=== PATIENT | male | born 2000 | race African-American/Black ===

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

== ENCOUNTER 2023-09-15 07:27 | Emergency (ER) | payer MEDICAID, OTHER ==
[~2023-09-15] VITALS: Ht 182.9 cm; Wt 184.4 kg
[2023-09-15 08:51] VITALS: BP 140/97; PULSE 96; RESP 18; TEMP 97; O2SAT 95
[2023-09-15] MEDS ORDERED: ALBUAER3 IN (09:18)
[2023-09-15] MEDS ORDERED: BENZ100C97 PO (09:18)
[2023-09-15] MEDS ORDERED: PRED20TA2 PO (09:18)
== END 2023-09-15 09:33 | disposition home or self-care (01) ==
LOC: ER 07:27
DX: J20.9 Acute bronchitis, unspecified (principal)
CPT/HCPCS: 71045

== ENCOUNTER 2024-04-20 07:56 | Emergency (ER) | payer MEDICAID ==
[~2024-04-20] VITALS: Ht 182.9 cm; Wt 180.9 kg
[~2024-04-20 07:56] MED LIST: ALBUAER3 IN; BENZ100C97 PO; PRED20TA2 PO
[2024-04-20 08:20] LABS: Basophils # (auto) 0.1 10 ^3/uL (0-0.2); Basophils % (auto) 0.6 % (0.0-2.0); Eosinophils # (auto) 0.1 10 ^3/uL (0-0.8); Eosinophils % (auto) 0.9 % (0.0-7.0); Hematocrit 48.1 % (41.0-53.0); Hemoglobin 16.1 g/dL (13.5-17.5); Lymphocytes # (auto) 4.6 10 ^3/uL (0.4-5.4); Lymphocytes % (auto) 38.5 % (10.0-50.0); Mean Corpuscular Hemoglobin 29.8 pg (28.0-32.0); Mean Corpuscular Hgb Conc. 33.6 g/dL (32.0-36.0); Mean Corpuscular Volume 88.7 fL (80.0-100.0); Monocytes # (auto) 0.8 10 ^3/uL (0-1.3); Monocytes % (auto) 7.1 % (0.0-12.0); Neutrophils # (auto) 6.3 10 ^3/uL (1.6-8.6); Neutrophils % (auto) 52.9 % (37.0-80.0); Nucleated Red Blood Cells % 0.1 %; Red Blood Cells 5.42 10^6/uL (4.5-5.90); Red Cell Distribution Width 13.3 % (11.8-14.3); White Blood Cell 11.9 10^3/uL (4.4-10.8)
[2024-04-20 08:43] LABS: Alanine Aminotransferase 30 U/L (7-40); Albumin 4.5 g/dL (3.2-4.8); Alkaline Phosphatase 80 U/L (46-116); Anion Gap 7 (5-15); Aspartate Aminotransferase 10 U/L (13-40); BUN/Creatinine Ratio 9.4 (10.0-20.0); Bilirubin, Total 0.3 mg/dL (0.2-1.0); Blood Urea Nitrogen 8 mg/dL (9-23); Calcium 9.4 mg/dL (8.7-10.4); Carbon Dioxide 25 mmol/L (20-30); Chloride 109 mmol/L (98-107); Glucose 95 mg/dL (74-106); Potassium 3.5 mmol/L (3.5-5.1); Sodium 141 mmol/L (136-145); Total Protein 7.4 g/dL (5.7-8.2)
[2024-04-20 09:03] LABS: Urine Bacteria None Seen /hpf (None Seen)
[2024-04-20 09:14] LABS: Urine Blood Negative /uL (Negative); Urine Clarity Clear (Clear); Urine Color Yellow (Yellow); Urine Protein, UAD Negative (Negative); Urine Specific Gravity 1.025 (1.001-1.035); Urine Urobilinogen 2 mg/dL (Negative); Urine WBC <1 /hpf (0 - 3); Urine pH 5.5 (5.0-9.0)
[2024-04-20 10:28] VITALS: PULSE 85; RESP 18; O2SAT 96
[2024-04-20 10:29] VITALS: BP 155/82; PULSE 75; RESP 18; O2SAT 98
[2024-04-20] MEDS: ASPirin 325 MG TAB PO ONE (10:34)
[2024-04-20] MEDS: MAALOX PLUS or MAALOX 30 ML PO ONE (10:35)
[2024-04-20] MEDS: FAMOTIDINE 20 MG TAB PO ONE (10:35)
== END 2024-04-20 10:59 | disposition home or self-care (01) ==
LOC: ER 07:56
DX: R07.89 Other chest pain (principal); L83 Acanthosis nigricans; F17.290 Nicotine dependence, other tobacco product, uncomplicated
CPT/HCPCS: 36415; 71045; 80053; 81001; 84484; 85025; 93005